=== PATIENT | male | born 1990 | race Caucasian/White ===

== ENCOUNTER 2023-08-16 09:45 | Emergency (ER) | payer BC, SELFPAY ==
[2023-08-16 09:53] VITALS: BP 124/86
[2023-08-16] MEDS: ZOFRAN 4 MG IV (10:13)
[2023-08-16] MEDS: TORADOL 30 MG IV (10:13)
[2023-08-16] MEDS: NSS 1000 IV (10:14)
--- NOTE | 2023-08-16 10:18 | ED.GENMED ---
History of Present Illness
General
Chief Complaint: Flank Pain
Source: patient
Exam Limitations: none
Time Seen by Provider: 08/16/23 10:01
Nursing documentation reviewed up to this point in time: agreed with
Travel History
Have you had any contact with someone who has COVID-19?: No
Do you have any symptoms of coronavirus? Fever > 100 degrees, chills, cough, shortness of breath, sore throat, loss of taste or smell, muscle aches, or headache?: No
History of Present Illness
History of Present Illness:
33-year-old male presenting to the emergency department today with concerns of right-sided flank pain rating to his lower abdomen over the past 2 days intermittent but very severe and sharp when the pain strikes. Has nausea no vomiting has had
kidney stones in the past. Developed some chest pain today as well
Past History
Past History
ED Past Medical History: None
ED Past Surgical History: Appendectomy
Social History
Personal: Single
Living: with family
Review of Systems
Review of Systems
Allergies reviewed?: Yes
All Other Systems: ROS reviewed and negative except as documented in HPI and ROS
Phy Exam
Physical Exam
Physical Exam:
GENERAL: Alert , in no apparent distress
EYE: pupils equal and reactive
NECK: Supple, no significant adenopathy.
ENT: o/p clr, mmm.
CARDIAC: Regular rate and rhythm .
LUNGS: Clear breath sounds bilaterally, no acute respiratory distress, no wheezes/rales/rhonchi
ABDOMEN: Mild right CVA tenderness otherwise abdomen soft, without focal tenderness, no r/g, no cvat
NEUROLOGICAL: Alert and oriented, no focal neuro deficits
SKIN: Warm and dry, skin intact.
MUSCULOSKELETAL: No edema, well perfused.
PSYCH: Normal and appropriate interaction.
Course
Orders/Labs/Results
Orders:
Orders
08/16/23 09:57
Electrocardiogram (*1) Urgent
Reason for Study: Chest Pain
EKG- Treatment ONCE
08/16/23 10:06
CT Abd/pel Without Iv Or Oral Urgent
Comment:
Reason For Exam: right flank pain
0.9% Sodium Chloride 1000 ml [Nss] 1,000 ml IV BOLUS
Ketorolac [Toradol] 30 mg IV NOW STA
Ondansetron Injectable [Zofran] 4 mg IV NOW STA
08/16/23 10:16
Complete Blood Count/With Diff Urgent
Comprehensive Metabolic Panel Urgent
08/16/23 11:09
Morphine Sulfate 4 mg IV NOW STA
Tamsulosin [Flomax] 0.4 mg PO NOW STA
08/16/23 11:16
Urinalysis Reflex To Culture Urgent
Date Specimen was Collected: 08/16/23
Time Specimen was Collected: 11:15
Urine Microscopic Reflex Cult Urgent
08/16/23 11:37
Tramadol HCl [Ultram] 50 mg PO NOW STA
Abnormal Lab Results
08/16/23 08/16/23
10:16 11:16
RBC 4.67 L 10^6/uL
(4.70-6.10)
Absolute Neuts (auto) 6.7 H 10^3/uL
(1.4-6.5)
Lymphocytes % 19.4 L %
(20.5-51.1)
Glucose 121 H mg/dl
(70-99)
Urine Ketones Trace A
(Negative)
Ur Occult Blood Reflex 4+ A
(Negative)
Urine RBC >100 A /HPF
(0-2)
08/16/23 10:16
08/16/23 10:16
Vital Signs
Initial and Last Documented VS:
Initial Vital Signs
Temp Pulse Resp BP Pulse Ox
98.8 F 74 20 124/86 96
08/16/23 09:53 08/16/23 09:53 08/16/23 09:53 08/16/23 09:53 08/16/23 09:53
Last Documented Vital Signs
Temp Pulse Resp BP Pulse Ox
98.8 F 63 20 117/70 96
08/16/23 09:53 08/16/23 13:02 08/16/23 09:53 08/16/23 13:02 08/16/23 09:53
MDM/Problems Addressed
MDM/Problems Addressed:
33-year-old male presenting to the emergency department today with concerns of right-sided flank pain rating to the right lower abdomen over the past few days. Has had some urinary frequency. On arrival vital signs are normal. Patient does appear
uncomfortable on examination. Mild pain to the right CVA no abdominal tenderness. Labs without significant white count normal creatinine urinalysis without signs of infection. Pain well-controlled here stable for outpatient management given
information for close urology follow-up. Return precautions given.
*Critical Care Note
Total Time (30-74mins, 75-104mins- exclusive of procedures): Not Applicable
ED Attending Note
-
Portions of this chart may have been created with voice recognition software.� Occasional wrong word or��sound alike� substitutions may have occurred due to the inherent limitations of voice recognition software.
Discharge Plan
Departure
Patient Disposition: Home (Routine Discharge)
Date of Disposition: 08/16/23
Time of Disposition: 13:29
Patient with high blood pressure during this ER visit?: No
Condition: Good
Covid-19: Not Applicable
Discharge Problem:
Kidney stone on right side
Instructions: Kidney Stones (DC), Renal Colic (DC)
Prescriptions:
New
ondansetron 4 mg tablet,disintegrating
4 mg PO Q8H PRN (Reason: nausea and vomiting) Qty: 7 0RF
ketorolac 10 mg tablet
10 mg PO Q6H PRN (Reason: Pain) 3 Days Qty: 14 0RF
oxycodone-acetaminophen [Endocet] 5-325 mg tablet
1 tab PO TID PRN (Reason: Pain) Qty: 7 0RF
tamsulosin [Flomax] 0.4 mg capsule
0.4 mg PO HS Qty: 10 0RF
No Action
diazepam 2 MG tablet
2 mg PO TIDPRN PRN (Reason: prn for muscle relaxation) Qty: 14 0RF
Referrals:
Dalton Burrows MD [Active] - Follow up in 5-7 days
NONE,* [Family Provider] -
Activity Restrictions/Additional Instructions:
You came to the emergency department today with concerns of right-sided flank pain. You are found to have a 4.5 mm stone. You will need to follow-up closely with urology take the medications as prescribed. Return to the emergency department for
any worsening, new or concerning symptoms.
Interventions
Interventions:
*Risk Screen - Suicide Last Done: 08/16/23 09:53
*General Assessment Last Done: 08/16/23 09:53
*Neglect/Abuse Screening Last Done: 08/16/23 09:53
ED- Fall Risk Assessment Last Done: 08/16/23 13:45
*ED COVID-19 Vaccine History Last Done: 08/16/23 13:45
*Nursing Disposition Last Done: 08/16/23 13:45
SR-Lauprk-Liadloybre Assessment Last Done: 08/16/23 10:18
ED- Cardiac Assessment Last Done: 08/16/23 13:45
ED-Male Genitourinary Assessment Last Done: 08/16/23 10:18
Discharge Date and Time
Discharge Date/Time: 08/16/23 13:46
Print Language: NEPALI
[2023-08-16 10:27] LABS: % Basophils 0.2 % (0-2); % Eosinophils 1.1 % (0-6); % Immature Granulocytes 0.1 % (0-0.5); % Lymphocytes 19.4 % (20.5-51.1); % Neutrophils 74.2 % (42.2-75.2); Absolute Eosinophils 0.1 10^3/uL (0-0.7); Absolute Lymphocytes 1.7 10^3/uL (1.2-3.4); Absolute Monocytes 0.5 10^3/uL (0.1-0.6); Absolute Neutrophils 6.7 10^3/uL (1.4-6.5); Hematocrit 40.3 % (39.0-52.0); Hemoglobin 13.8 g/dL (13.0-18.0); Mean Corp Hgb Conc. 34.2 g/dL (33.0-37.0); Mean Corpuscular Hgb 29.6 pg (27.0-31.0); Mean Corpuscular Volume 86.3 fL (80.0-94.0); Mean Platelet Volume 9.9 fL (7.4-10.4); Nucleated Red Blood Cells % 0 % (-); Platelet Count 272 10^3/uL (130-400); Red Blood Cell Count 4.67 10^6/uL (4.70-6.10)
[2023-08-16 10:40] LABS: ALT (SGPT) 29 U/L (0-50); AST (SGOT) 23 U/L (17-59); Albumin 4.4 g/dl (3.5-5.0); Alkaline Phosphatase 55 U/L (38-126); Blood Urea Nitrogen 20 mg/dl (9-20); Calcium 9.6 mg/dl (8.4-10.2); Carbon Dioxide 24 mmol/L (22-30); Chloride 106 mmol/L (98-107); Glucose 121 mg/dl (70-99); Potassium 4.2 mmol/L (3.5-5.1); Sodium 139 mmol/L (135-145); Total Bilirubin 0.9 mg/dl (0.2-1.3); eGFR > 60.00
[2023-08-16] MEDS: FLOMAX 0.400000000000000022 MG PO (11:12)
[2023-08-16] MEDS: MORPHINE SULFATE 4 MG IV (11:12)
[2023-08-16] MEDS: ULTRAM 50 MG PO (11:41)
[2023-08-16 11:55] LABS: Urine Albumin Negative (Neg - Trace); Urine Bilirubin Negative (Negative); Urine Character Slightly Cloudy (Clear); Urine Color Yellow; Urine Glucose Negative (Negative); Urine Ketone Trace (Negative); Urine Leukocyte Negative (Negative); Urine Nitrite Negative (Negative); Urine Occult Blood 4+ (Negative); Urine Specific Gravity 1.025 (<1.030); Urine Urobilinogen Negative (Neg - 1+)
[2023-08-16 13:02] VITALS: BP 117/70
[2023-08-16 13:47] LABS: Urine Red Blood Cell >100 /HPF (0-2); Urine Squamous Cell 0-2 /LPF (Few); Urine White Cell 0-2 /HPF (0-5)
== END 2023-08-16 13:46 | disposition home or self-care (01) ==
LOC: EMR 09:45
PROVIDERS: Physician Assistant; EMERGENCY PHYSICIAN Emergency Medicine
DX: N20.0 Calculus of kidney (principal); R07.89 Other chest pain; Z90.49 Acquired absence of other specified parts of digestive tract
CPT/HCPCS: 99284; 96374; 96375; 96361; 74176; 80053; 81003; 81015; 85025; 93005

== ENCOUNTER 2024-03-11 10:32 | Emergency (ER) | payer BC, SELFPAY ==
[2024-03-11] VITALS (7 sets, daily range): BP systolic 113–136; BP diastolic 71–92; BMI 34.8
--- NOTE | 2024-03-11 10:47 | EDRN ---
Evy MARTINEZ currently at the pts bedside, EKG performed, pt placed on patient monitor, BP cuff, VS WNL, right side chest pain is currently a 2/10 and non radiating, the pts parents were immediately brought back to the pts room when they arrived
due to being upset that their son was taken to the ER in an ambulance, PIV placed, the pt has been update on the plan of care, the pt is resting in stretcher in the lowest position, side rails up x2, call wilde within reach, HOB elevated, will
continue to monitor the pt closely
[2024-03-11 10:51] LABS: % Basophils 0.2 % (0-2); % Eosinophils 2.7 % (0-6); % Immature Granulocytes 0.3 % (0-0.5); % Lymphocytes 40.1 % (20.5-51.1); % Monocytes 6.1 % (1.7-9.3); % Neutrophils 50.6 % (42.2-75.2); Absolute Eosinophils 0.2 10^3/uL (0-0.7); Absolute Lymphocytes 3.4 10^3/uL (1.2-3.4); Absolute Monocytes 0.5 10^3/uL (0.1-0.6); Absolute Neutrophils 4.3 10^3/uL (1.4-6.5); Hematocrit 44.2 % (39.0-52.0); Hemoglobin 14.8 g/dL (13.0-18.0); Mean Corp Hgb Conc. 33.5 g/dL (33.0-37.0); Mean Corpuscular Hgb 29.5 pg (27.0-31.0); Mean Platelet Volume 9.8 fL (7.4-10.4); Nucleated Red Blood Cells % 0 % (-); Platelet Count 233 10^3/uL (130-400); Red Blood Cell Count 5.02 10^6/uL (4.70-6.10); Red Cell Dist. Width 13.4 % (11.5-14.5); White Blood Cell Count 8.6 10^3/uL (4.8-10.8)
--- NOTE | 2024-03-11 10:52 | ED.GENMED ---
History of Present Illness
<Jenna Jamison PA-C - Last Filed: 03/11/24 20:37>
General
Chief Complaint: Chest Pain
Source: patient
Exam Limitations: none
Time Seen by Provider: 03/11/24 10:34
Nursing documentation reviewed up to this point in time: agreed with
History of Present Illness
History of Present Illness:
Patient is a 34-year-old male presenting to the emergency department via EMS for evaluation of acute onset chest discomfort waking him from sleep this morning. Patient states about 1 hour ago he was awoken from sleep with a 6/10 chest pressure in
his mid chest. No radiation to his back, jaw, or shoulder. Patient reports associated nausea and lightheadedness although denies any vomiting. Patient states he felt extremely sweaty and if he was in a pass out. Patient's gave him 487 mg of
aspirin (1.5 tablets) and call [phone]. Patient states at this time chest pressure has essentially resolved. He no longer feels lightheaded. Patient denies any associated shortness of breath. No abdominal pain
Patient denies any similar symptoms in the past. Patient does have history of acid reflux but states this feels very different. However�she did have steak and popcorn late at night prior to bed.
No personal history of cardiovascular disease. Patient does have a family history of CAD in maternal grandmother, CHF.
Past History
<Jenna Jamison PA-C - Last Filed: 03/11/24 20:37>
Past History
ED Past Medical History: None
ED Past Surgical History: Appendectomy
Social History
Personal: Single
Living: with family
Review of Systems
<Jenna Jamison PA-C - Last Filed: 03/11/24 20:37>
Review of Systems
Allergies reviewed?: Yes
All Other Systems: ROS reviewed and negative except as documented in HPI and ROS
Phy Exam
<Jenna Jamison PA-C - Last Filed: 03/11/24 20:37>
Physical Exam
Physical Exam:
Vitals: Patient's vital signs are stable. Afebrile
General: Patient is well appearing, no acute distress. Nontoxic
Skin: Warm and dry, no rashes or lesions
Head: Normocephalic, atraumatic
Eyes: Sclera nonicteric. EOMs intact. No nystagmus.
Throat: Protecting airway
Neck: Normal ROM, no cervical spine tenderness, no meningismus
Cardiac: Regular rate and rhythm, no murmurs. No reproducible chest wall tenderness
Pulm: Normal respiratory effort, no wheezes, rales, rhonchi heard on exam.
Abdomen: Abdomen soft. No abdominal tenderness.
Extremities: No evidence of cyanosis or edema. Palpable DP pulses bilaterally
Neuro: AAOx3. Grossly intact.
Psychiatric: Normal affect.
Scores
<Jenna Jamison PA-C - Last Filed: 03/11/24 20:37>
Heart Score for Chest Pain Patients
STEMI patient?: No
History: Slightly or Non-Suspicious
ECG: Nonspecific Repolarization
Age: </= 45 years
Risk Factors: 1 or 2 Risk Factors
Troponin: </= Normal Limit
Heart Score for Chest Pain Patients: 2
Heart Score Risk: 2.5% MACE over next 6 weeks
Course
<Jenna Jamison PA-C - Last Filed: 03/11/24 20:37>
Orders/Labs/Results
Orders:
Orders
03/11/24
Electrocardiogram (*1) Stat
Reason for Study: Chest Pain
Comment: DONE
03/11/24 10:33
Electrocardiogram (*1) Urgent
Reason for Study: Chest Pain
CXR2 [CR Chest - 2 Views ] Urgent
Comment:
Reason For Exam: chest pain/SOB
03/11/24 10:34
EKG- Treatment ONCE
03/11/24 10:45
Complete Blood Count/With Diff Urgent
Comprehensive Metabolic Panel Urgent
Troponin I Urgent
03/11/24 11:36
EKG- Treatment ONCE
03/11/24 13:45
Electrocardiogram (*1) Urgent
Reason for Study: Chest Pain
EKG- Treatment ONCE
03/11/24 15:50
Troponin I Routine
03/11/24 17:05
Add On- LAB Urgent
Tests Added?: d-dimer
03/11/24 17:46
CT Chest PE Study Urgent
Comment:
Reason For Exam: chest pain
Abnormal Lab Results
03/11/24
10:45
Chloride 108 H mmol/L
(98-107)
Carbon Dioxide 20 L mmol/L
(22-30)
Glucose 119 H mg/dl
(70-99)
ALT 54 H U/L
(0-50)
03/11/24 10:45
03/11/24 10:45
Vital Signs
Initial and Last Documented VS:
Initial Vital Signs
Pulse Resp
85 17
03/11/24 10:36 03/11/24 10:36
Last Documented Vital Signs
Temp Pulse Resp BP Pulse Ox
97.5 F 96 20 136/75 98
03/11/24 18:14 03/11/24 18:14 03/11/24 18:14 03/11/24 18:14 03/11/24 18:14
<Ezio Rodarte, DO - Last Filed: 03/11/24 15:05>
Orders/Labs/Results
Orders:
Orders
03/11/24
Electrocardiogram (*1) Stat
Reason for Study: Chest Pain
Comment: DONE
03/11/24 10:33
Electrocardiogram (*1) Urgent
Reason for Study: Chest Pain
CXR2 [CR Chest - 2 Views ] Urgent
Comment:
Reason For Exam: chest pain/SOB
03/11/24 10:34
EKG- Treatment ONCE
03/11/24 10:45
Complete Blood Count/With Diff Urgent
Comprehensive Metabolic Panel Urgent
Troponin I Urgent
03/11/24 11:36
EKG- Treatment ONCE
03/11/24 13:45
Electrocardiogram (*1) Urgent
Reason for Study: Chest Pain
EKG- Treatment ONCE
03/11/24 15:50
Troponin I Routine
03/11/24 17:05
Add On- LAB Urgent
Tests Added?: d-dimer
03/11/24 17:46
CT Chest PE Study Urgent
Comment:
Reason For Exam: chest pain
Abnormal Lab Results
03/11/24
10:45
Chloride 108 H mmol/L
(98-107)
Carbon Dioxide 20 L mmol/L
(22-30)
Glucose 119 H mg/dl
(70-99)
ALT 54 H U/L
(0-50)
03/11/24 10:45
03/11/24 10:45
Vital Signs
Initial and Last Documented VS:
Initial Vital Signs
Pulse Resp
85 17
03/11/24 10:36 03/11/24 10:36
Last Documented Vital Signs
Temp Pulse Resp BP Pulse Ox
97.5 F 96 20 136/75 98
03/11/24 18:14 03/11/24 18:14 03/11/24 18:14 03/11/24 18:14 03/11/24 18:14
<Jenna Jamison PA-C - Last Filed: 03/11/24 20:37>
MDM/Problems Addressed
Differential Diagnosis Includes:
Not limited to: GERD, biliary colic, pancreatitis, acute coronary syndrome, pericarditis, etc.
MDM/Problems Addressed:
34-year-old male with acute onset chest pain, mostly resolved prior to arrival after aspirin. Notes associated nausea, lightheadedness, diaphoresis. No associated shortness of breath. No alleviating or exacerbating factors of pain. Patient
arrived with stable vital signs. He is afebrile. Physical exam as above. EKG obtained upon arrival shows normal sinus rhythm with some T wave inversions in the inferior leads. There is no prior EKG for comparison. Will check labs, serial
troponins, chest x-ray. Will closely monitor and reassess. At this time patient without any pain or discomfort.
Update 1 PM: Into reassess patient at bedside. Patient remains asymptomatic and comfortable without any chest pain or shortness of breath. Labs reviewed. No clinically significant abnormalities. Initial troponin undetectable. Will trend. Chest
x-ray without acute abnormalities.
Update 3:00 PM: Unfortunately�multiple troponins were drawn and hemolyzed through lab. Repeat troponin pending. Patient remains asymptomatic and chest pain-free. Repeat EKG remains unchanged from prior.
Update 4 PM: Repeat troponin undetectable. This was discussed with cardiology, Dr. Carranza who recommended ruling out pulmonary embolism given slight [id number] pattern noted on EKG. Discussed D-dimer with patient at screening exam as patient be
considered low risk and overall have very low suspicion for pulmonary embolism given patient has been asymptomatic with no pleuritic nature of pain. However�patient refusing any further blood draws given repetitive sticks today while drawing
troponin. Will check CTA chest to rule out PE.
Update 630 PM: CTA chest report reviewed. No evidence of pulmonary embolism or other acute abnormalities in the chest. Patient has remained chest pain-free and asymptomatic since arrival to emergency department. Workup negative. Low suspicion
for acute cardiac/pulmonary process. However�given family history and EKG changes, recommended close cardiology follow-up. Offered patient chest pain hotline although he states that he will follow-up with his brothers floral clerk at [facility]
Hospital. Very close return precautions discussed. Patient stable for discharge
Chronic conditions affecting care:
N/A
Acute Exacerbation and/or Progression of Chronic Illness:
N/A
<Jenna Jamison PA-C - Last Filed: 03/11/24 20:37>
*Radiology
Radiology exam reviewed: preliminary read by ED provider (Chest x-ray reviewed by nm-no acute abnormalities) and radiology read reviewed
*Pulse Oximetry
Patient hypoxic: no
*EKG
Interpreted by ED Provider?: Yes
EKG Intrepretation Date: 03/11/24
Interpretation: abnormal
Comparison EKG: no comparison EKG present
Heart Rate: 86
Rate: normal
Rhythm: sinus
Sheldon: normal axis
Interval: normal QT interval
QRS Pattern: normal QRS
Ischemia: T-wave inversion (T wave inversions in leads II, III, aVF)
*Strip Picker Interpretation
Rate: normal
Interpretation: normal
Heart Rate: 82
Rhythm: sinus
*Critical Care Note
Total Time (30-74mins, 75-104mins- exclusive of procedures): Not Applicable
<Jenna Jamison PA-C - Last Filed: 03/11/24 20:37>
Patient Management
Discussion with other providers: Experimental Psychologist (Cardiology-Dr. Carranza)
ED Attending Note
<Jenna Jamison PA-C - Last Filed: 03/11/24 20:37>
-
Portions of this chart may have been created with voice recognition software.� Occasional wrong word or��sound alike� substitutions may have occurred due to the inherent limitations of voice recognition software.
<Ezio Rodarte DO - Last Filed: 03/11/24 15:05>
ED Attending Note
Patient seen and examined by attending physician: Yes
I performed a history and physical exam of patient and discussed management with resident, I reviewed resident's note and agree with documented findings and plan of care.: Yes
ED Attending Note:
I agree with history and treatment plan by Jenna Fay. My exam revealed 34-year-old male no acute distress. Clear lungs. No murmur. S1, S2, no S3 or S4. Initial troponin negative. Will repeat troponin. Mild T wave inversions seen in
leads II, III and aVF.
Discharge Plan
Departure
Patient Disposition: Home (Routine Discharge)
Date of Disposition: 03/11/24
Time of Disposition: 18:37
Patient with high blood pressure during this ER visit?: Yes
Condition: Good
Covid-19: Not Applicable
Discharge Problem:
Chest pain
Instructions: Chest pain
Prescriptions:
No Action
No Current Medications
0
Referrals:
NONE,* [Family Provider] -
Damien Carranza MD [Active] - Next open appointment
Activity Restrictions/Additional Instructions:
Return to the emergency department any pain, shortness of breath, severe back pain, lightheadedness/dizziness, worsening current symptoms, or any other concerns
-As discussed�your CT of your chest showed no evidence of a pulmonary embolism.
-Given your family history and findings on your EKG�it is important you follow-up closely with a floral clerk. I have provided name for you above or you can follow-up with your family floral clerk in [facility].
-Take it easy until you are seen by floral clerk. Stay well-hydrated.
Monitor your symptoms closely and return to the emergency department any acute worsening/new symptoms or any other concerns
Interventions
Interventions:
*Risk Screen - Suicide Last Done: 03/11/24 10:51
*General Assessment Last Done: 03/11/24 10:51
*Neglect/Abuse Screening Last Done: 03/11/24 10:51
ED- Fall Risk Assessment Last Done: 03/11/24 10:51
*ED COVID-19 Vaccine History Last Done: 03/11/24 10:51
*Nursing Disposition Last Done: 03/11/24 18:41
ED- Cardiac Assessment Last Done: 03/11/24 10:51
Discharge Date and Time
Discharge Date/Time: 03/11/24 18:43
Print Language: MARSHALLESE
[2024-03-11 11:08] LABS: ALT (SGPT) 54 U/L (0-50); AST (SGOT) 28 U/L (17-59); Albumin 4.5 g/dl (3.5-5.0); Alkaline Phosphatase 53 U/L (38-126); Blood Urea Nitrogen 16 mg/dl (9-20); Calcium 8.9 mg/dl (8.4-10.2); Carbon Dioxide 20 mmol/L (22-30); Chloride 108 mmol/L (98-107); Estimated Creatinine Clearance > 125 ml/min; Glucose 119 mg/dl (70-99); Potassium 4.1 mmol/L (3.5-5.1); Sodium 141 mmol/L (135-145); Total Bilirubin 0.7 mg/dl (0.2-1.3); Total Protein 6.7 g/dl (6.3-8.2); eGFR > 60.00
[2024-03-11 11:18] LABS: Troponin I < 0.012 ng/ml
[2024-03-11 16:30] LABS: Troponin I < 0.012 ng/ml
--- NOTE | 2024-03-11 16:35 | EDRN ---
Evy MARTINEZ currently at the pts bedside
--- NOTE | 2024-03-11 17:29 | EDRN ---
the lab so far has hemolyzed multiple specimens for the pts Troponin and the provider Evy MARTINEZ notified along with Dr. Randall, multiple RN's have straight stuck the pt to obtain Troponin, the second Troponin level finally resulted and the
provider was notified that the Troponin was negative, the provider then spoke to Dr. Carranza in cardiology and per the rolling machine operator a D-dimer was to be drawn and sent to the lab, this RN any the first D-dimer and the lab called this RN to stated that
the D-dimer was hemolyzed, this RN notified the provider and another RN was going to go into the pts room to draw and send a second D-dimer, the family stated that they were very upset and frustrated and don't understand why 'so many labs have to be
drawn this is ridiculous and something doesn't add up and something doesn't make sense', this RN notified Evy MARTINEZ, Dr. Randall, and the charge nurse Pam Pena, this RN apologized to the pts family and apologized for their frustrations and
for their wait in the emergency room, Evy MARTINEZ and Pam Pena RN the charge nurse entered the pts room to speak to the pt and the pts family to attempt to de escalate the situation
--- NOTE | 2024-03-11 17:47 | EDRN ---
Evy MARTINEZ and Pam Pena RN currently still at the pts bedside speaking with the pt and the pts family, the pt family is refusing D-dimer and wants to go straight to CT scan for PE study
--- NOTE | 2024-03-11 18:05 | EDRN ---
the pt was brought back from CT scan to ED Bed #2
--- NOTE | 2024-03-11 18:11 | EDRN ---
the pt was not placed back on the qc chemist due to the pt removing qc chemist and leads prior to CT scan and wanting to be done with 'the wires', the PCT Anyi entered the pts room to place the pt back on the qc chemist and to
recheck vital signs and the pt refused
== END 2024-03-11 18:43 | disposition home or self-care (01) ==
LOC: EMR 10:32
PROVIDERS: EMERGENCY PHYSICIAN Emergency Medicine
DX: R07.89 Other chest pain (principal); K21.9 Gastro-esophageal reflux disease without esophagitis; Z90.49 Acquired absence of other specified parts of digestive tract; Z82.49 Family history of ischemic heart disease and other diseases of the circulatory system
CPT/HCPCS: 99285; 71046; 71275; 80053; 84484; 85025; 93005; Q9967

== ENCOUNTER 2024-10-01 12:53 | Emergency (ER) | payer OTHER, SELFPAY ==
[2024-10-01 12:58] VITALS: BP 129/87
[2024-10-01 13:07] VITALS: BP 125/79
--- NOTE | 2024-10-01 13:55 | ED.GENMED ---
History of Present Illness
General
Chief Complaint: Chest Pain
Time Seen by Provider: 10/01/24 13:52
History of Present Illness
History of Present Illness:
PAST MEDICAL HISTORY AND REVIEW OF OLD RECORDS
- I reviewed records. The patient was also seen here with chest pain in February of this year and was discharged from the ER at that time. At that time, the patient also had a CTA that was negative for PE.
Note:
CHIEF COMPLAINT(S)
Chest pain radiating to the neck and shoulder with associated tingling in the hand.
HISTORY OF PRESENT ILLNESS
The patient is a 34-year-old male with a history of high cholesterol who presents with reports of chest pain radiating to the neck and shoulder with a tingling sensation in the hand. The patient reported that these symptoms began approximately one
month ago, during which he would occasionally experience chest pain that intensified today, lasting longer than usual. The pain started around 12 oclock today and has persisted. He describes the pain as a severe tightening sensation in the center of
the chest, radiating into the throat and neck, and accompanied by tingling in the hand, although he maintains full mobility of the hand. He mentions that the pain intensity has varied in past occurrences, typically lasting five to ten minutes.
Notably, he experienced chest discomfort when pressure was applied to the chest area during the exam.
The patient has a past medical history of high cholesterol and chronic hives for which he is taking prednisone, Zyrtec, Pepsid, hydroxazine, and Xolair. He attributes one previous episode of abnormal electrocardiogram (EKG) results in February to
accidentally taking his fathers blood pressure medication. No follow-up with a rug cleaner helper was pursued at that time, despite a recommendation. The patient has had previous concerns about abnormal EKG results but was reassured they were non-specific
and not indicative of emergent cardiac issues. Blood work is pending to further evaluate his current condition.
EXTERNAL RECORDS REVIEWED
Prior ER visit records from February with abnormal but non-specific EKG results that did not necessitate hospital admission or immediate intervention.
CHRONIC MEDICAL CONDITIONS SIGNIFICANTLY AFFECTING CARE
- High cholesterol.
- Chronic hives.
MEDICATIONS
- Prednisone for chronic urticaria.
- Zyrtec (cetirizine) taken twice daily.
- Pepsid.
- Hydroxyzine.
- Xolair.
PHYSICAL EXAM
General: Alert, no acute distress. However at times appears to have pain in his chest that especially worsens with palpation.
Skin: Warm, dry.
Head: Normocephalic, atraumatic.
Neck: Supple, trachea midline.
Eye, Ears, Nose, Mouth, and Throat: Oral mucosa moist.
Cardiovascular: Normal peripheral perfusion, No edema.
Respiratory: Respirations are non-labored, severe tenderness noted upon palpation of the left chest wall.
Gastrointestinal: Abdomen nondistended.
Back: Normal range of motion, normal alignment.
Musculoskeletal: Normal range of motion, normal strength.
Neurological: Alert and oriented to person, place, time, and situation, No focal neurological deficit observed.
Psychiatric: Cooperative, appropriate mood & affect.
PROBLEM LIST
Acute Problems:
- Chest pain with radiation to neck and shoulder.
- Tingling sensation in the hand.
Chronic Problems:
- High cholesterol.
- Chronic urticaria (hives).
PLAN
- Perform cardiac panel blood work to rule out any acute cardiac events.
- Prescribe a single dose of ketorolac for pain management.
- Consider referral for rug cleaner helper consultation for further evaluation of the recurrent chest pain and review of abnormal EKG findings.
- Educate the patient about recognizing worsening symptoms and advising ER return if conditions intensify.
- Schedule follow-up to discuss lab results and potential need for further cardiac evaluation.
DIFFERENTIAL DIAGNOSIS
The Differential Diagnosis includes, in no particular order and is not limited to:
- Acute coronary syndrome.
- Gastroesophageal reflux disease (GERD).
- Costochondritis.
- Cervical radiculopathy.
- Panic attack/anxiety.
- Myocarditis.
- Pericarditis.
- Musculoskeletal pain.
- Pulmonary embolism.
- Aortic dissection.
SUMMARY OF ENCOUNTER
The patient, a 34-year-old male, presented with chest pain radiating to the neck and shoulder, accompanied by tingling in the hand. He has a history of high cholesterol. An electrocardiogram (EKG) was performed and compared to a previous EKG from
February, showing no significant changes or acute concerns. While serious cardiac issues are less likely at his age, further evaluation is recommended considering his risk factors. The patient is advised to follow up with a rug cleaner helper and consider
further testing to rule out cardiac events. Musculoskeletal or gastrointestinal causes for the chest pain are considered more likely. The patient is advised to also consider a GI consultation.
PLAN
Perform cardiac panel blood work.
Provide contact information for rug cleaner helper follow-up, particularly suggesting Dr. Guerra from [facility].
Further testing with a GI specialist at [facility] is suggested.
PATIENT EDUCATION AND COUNSELING
Informed the patient about the importance of cardiac follow-up due to a history of high cholesterol and risk factors. Explained non-cardiac causes of chest pain, such as musculoskeletal or gastrointestinal issues. Encouraged weight loss efforts to
manage cholesterol levels.
FOLLOW-UP INSTRUCTIONS
Follow up with [facility] and [facility] for further evaluation.
MEDICATION RECONCILIATION
Provided a single dose of ketorolac for pain management.
MEDICAL DECISION MAKING
-Complexity of Data Reviewed:
Chronic conditions affecting care include high cholesterol and chronic urticaria. Differential diagnosis includes acute coronary syndrome, gastroesophageal reflux disease (GERD), costochondritis, cervical radiculopathy, panic attack/anxiety,
myocarditis, pericarditis, musculoskeletal pain, pulmonary embolism, and aortic dissection.
-Data:
Category 1:
Reviewed prior ER visit records from February showing an abnormal EKG that was non-specific.
-Risk:
Consideration of Admission/Observation: Escalation of care including admission/observation was considered given the complexity and risk of the patients presenting complaint, exam findings, and/or their underlying comorbidities. However, ultimately I
feel the patient is safe for outpatient management with close follow-up. Reasoning: Work-up reassuring, does not reveal any acute life/organ-threatening processes, patients symptoms well controlled upon reevaluation, reexamination is reassuring,
vitals are stable, patient agreeable with discharge, reliable for follow-up.
DIAGNOSIS
Costochondritis (M94.0)
Chronic urticaria (L50.1)
Hyperlipidemia, unspecified (E78.5)
RADIOLOGY
- I personally viewed chest x-ray and see no evidence of pneumothorax or consolidation.
EKG
- Sinus 105, normal axis, nonspecific ST normality, no significant change from 03/11/2024
-
LABS
- White count 13.0, hemoglobin normal, chemistries unremarkable, initial troponin less than 0.012
UPDATE
- I reassessed patient at 3:20 PM. Overall he is improved but did have an episode of pain into the right side of his jaw that was self-limiting. The patient did have another episode of chest discomfort and another EKG was obtained which is very
similar in comparison to the first EKG from earlier today.
- Patient to follow-up with cardiology as outpatient we also talked about the possibly of following up with GI as well. He appears very comfortable at time of discharge.
Past History
Past History
ED Past Medical History: None
ED Past Surgical History: Appendectomy
Social History
Personal: Single
Living: with family
Phy Exam
Physical Exam
Physical Exam:
See HPI
Scores
Heart Score for Chest Pain Patients
STEMI patient?: Not applicable
Course
Orders/Labs/Results
Orders:
Orders
10/01/24 12:54
Electrocardiogram (*1) Urgent
Reason for Study: Chest Pain
EKG- Treatment ONCE
10/01/24 14:02
Ketorolac [Toradol] 15 mg IV NOW STA
10/01/24 14:03
CR Chest - 2 Views Urgent
Comment:
Reason For Exam: L pain
10/01/24 14:16
Complete Blood Count/With Diff Urgent
Comprehensive Metabolic Panel Urgent
Troponin I Urgent
10/01/24 14:31
EKG [Electrocardiogram (*1)] Urgent
Reason for Study: Chest Pain
EKG- Treatment ONCE
10/01/24 16:28
Troponin I Urgent
Abnormal Lab Results
10/01/24
14:16
WBC 13.0 H 10^3/uL
(4.8-10.8)
MCHC 32.7 L g/dL
(33.0-37.0)
Abs Immat Gran (auto) 0.1 H 10^3/uL
(0-0.05)
Absolute Neuts (auto) 11.1 H 10^3/uL
(1.4-6.5)
Neutrophils % 84.8 H %
(42.2-75.2)
Lymphocytes % 10.7 L %
(20.5-51.1)
Chloride 108 H mmol/L
(98-107)
Glucose 100 H mg/dl
(70-99)
10/01/24 14:16
10/01/24 14:16
Vital Signs
Initial and Last Documented VS:
Initial Vital Signs
Temp Pulse Resp BP Pulse Ox
36.6 C 89 16 129/87 97
10/01/24 12:58 10/01/24 12:58 10/01/24 12:58 10/01/24 12:58 10/01/24 12:58
Last Documented Vital Signs
Temp Pulse Resp BP Pulse Ox
36.6 C 93 15 109/75 97
10/01/24 12:58 10/01/24 16:45 10/01/24 16:45 10/01/24 16:00 10/01/24 13:55
*Pulse Oximetry
SaO2: 97
Oxygen Mode of Delivery: Room air
Patient hypoxic: no
*Critical Care Note
Total Time (30-74mins, 75-104mins- exclusive of procedures): Not Applicable
ED Attending Note
-
Portions of this chart may have been created with voice recognition software.� Occasional wrong word or��sound alike� substitutions may have occurred due to the inherent limitations of voice recognition software.
Discharge Plan
Departure
Patient Disposition: Home (Routine Discharge)
Date of Disposition: 10/01/24
Time of Disposition: 17:13
Patient with high blood pressure during this ER visit?: Yes
Discharge Problem:
Chest pain
Instructions: Chest Pain CBC Follow Up
Prescriptions:
No Action
No Current Medications
0
Referrals:
Charles Salgado MD [Active, Cardiology]
Micahel Rosenthal PA-C [Family Provider, Family Practice]
Activity Restrictions/Additional Instructions:
2 sets of cardiac blood work as well as EKG showed no sign of you having a heart attack at this time. Tthere is some nonspecific ST abnormality on the EKG, but this does not look like anything new. I recommend that you follow-up with a
rug cleaner helper such as Dr. Salgado. Chest x-ray is normal.
Interventions
Interventions:
*Risk Screen - Suicide Last Done: 10/01/24 12:59
*General Assessment Last Done: 10/01/24 14:51
*Neglect/Abuse Screening Last Done: 10/01/24 12:59
*ED- Fall Risk Assessment Last Done: 10/01/24 14:51
*ED COVID-19 Vaccine History Last Done: 10/01/24 14:51
ED- Cardiac Assessment Last Done: 10/01/24 14:22
Discharge Date and Time
Print Language: LUX[place]
[2024-10-01 14:00] VITALS: BP 117/74
[2024-10-01] MEDS: TORADOL 15 MG IV (14:18)
[2024-10-01 14:20] VITALS: BMI 35.9
[2024-10-01 14:28] LABS: Hematocrit 44.9 % (39.0-52.0); Hemoglobin 14.7 g/dL (13.0-18.0); Mean Corp Hgb Conc. 32.7 g/dL (33.0-37.0); Mean Corpuscular Volume 88.9 fL (80.0-94.0); Nucleated Red Blood Cells % 0 % (-); Platelet Count 208 10^3/uL (130-400); Red Cell Dist. Width 13.8 % (11.5-14.5)
[2024-10-01 14:46] LABS: ALT (SGPT) 25 U/L (0-50); AST (SGOT) 18 U/L (17-59); Albumin 4.3 g/dl (3.5-5.0); Alkaline Phosphatase 44 U/L (38-126); Blood Urea Nitrogen 20 mg/dl (9-20); Calcium 9.3 mg/dl (8.4-10.2); Carbon Dioxide 24 mmol/L (22-30); Chloride 108 mmol/L (98-107); Estimated Creatinine Clearance 121 ml/min; Glucose 100 mg/dl (70-99); Potassium 4.6 mmol/L (3.5-5.1); Sodium 140 mmol/L (135-145); Total Protein 6.6 g/dl (6.3-8.2); eGFR > 60.00
[2024-10-01 14:58] LABS: Troponin I < 0.012 ng/ml
[2024-10-01 15:17] VITALS: BP 123/78
[2024-10-01 16:00] VITALS: BP 109/75
[2024-10-01 17:00] VITALS: BP 114/75
[2024-10-01 17:03] LABS: Troponin I < 0.012 ng/ml
== END 2024-10-01 17:34 | disposition home or self-care (01) ==
LOC: EMR 12:53
PROVIDERS: EMERGENCY PHYSICIAN Emergency Medicine; FAMILY PHYSICIAN Physician Assistant Medical
DX: R07.9 Chest pain, unspecified (principal); E78.00 Pure hypercholesterolemia, unspecified; L50.8 Other urticaria
CPT/HCPCS: 99284; 96374; 71046; 80053; 84484; 85025; 93005

== ENCOUNTER 2024-10-02 00:42 | Emergency (ER) | payer OTHER, SELFPAY ==
[2024-10-02 00:51] VITALS: BP 116/84
--- NOTE | 2024-10-02 02:07 | ED.GENMED ---
History of Present Illness
General
Chief Complaint: Allergic Reaction
Source: patient
Time Seen by Provider: 10/02/24 01:57
History of Present Illness
History of Present Illness:
34-year-old male presents to the emergency room complaining of facial, neck, lip swelling. Symptoms began this evening. Patient had been here earlier today for chest pain. Workup at that time was negative. Patient has been under treatment by an
security and compliance analyst for chronic urticaria. He has been taking multiple medications without any clear resolution. Patient subjectively feels like there is some neck swelling or throat swelling though he is phonating normally. No stridor.
Past History
Past History
ED Past Medical History: None
ED Past Surgical History: Appendectomy
Social History
Personal: Single
Living: with family
Phy Exam
Physical Exam
Physical Exam:
General: Awake, Alert, Oriented X3. No acute distress.
Vitals: unremarkable
Head: Atraumatic, facial and lip edema
Eyes: Pupils equal, EOMI
Throat: Airway intact, no exudates perhaps some angioedema of the tongue but certainly no stridor. No angioedema of the posterior pharynx
Neck: Trachea midline
Lungs: Clear and equal b/l
Heart: Regular rate, no murmurs
Abd: Soft, Nontender, No pulsatile mass
Neuro: Nonfocal
Skin: Warm, dry, no rash
Extremities: pulses equal b/l, no edema
Course
Orders/Labs/Results
Orders:
Orders
10/02/24 02:03
Cardiac Monitoring- Treatment ONCE
Dexamethasone Sod Phosphate [Decadron] 10 mg IV NOW STA
Diphenhydramine [Benadryl] 50 mg IV NOW STA
EPINEPHrine PF [Adrenalin] 0.3 mg IM NOW STA
Vital Signs
Initial and Last Documented VS:
Initial Vital Signs
Temp Pulse Resp BP Pulse Ox
98.5 F 96 18 116/84 95
10/02/24 00:51 10/02/24 00:51 10/02/24 00:51 10/02/24 00:51 10/02/24 00:51
Last Documented Vital Signs
Temp Pulse Resp BP Pulse Ox
98.1 F 75 18 115/71 96
10/02/24 02:10 10/02/24 02:10 10/02/24 00:51 10/02/24 04:42 10/02/24 02:10
MDM/Problems Addressed
Differential Diagnosis Includes:
allergic reaction, angioedema, hereditary angioedema
MDM/Problems Addressed:
Pt treated with benadryl, steroid, epi. Symptoms have not progressed and somewhat better. Observed for extended period of time. D/c Pt has an security and compliance analyst who has been treating chronic urticaria with various medications. He will need to follow up
with them closely
*Pulse Oximetry
SaO2: 95
Oxygen Mode of Delivery: Room air
Patient hypoxic: no
*Critical Care Note
Total Time (30-74mins, 75-104mins- exclusive of procedures): Not Applicable
ED Attending Note
-
Portions of this chart may have been created with voice recognition software.� Occasional wrong word or��sound alike� substitutions may have occurred due to the inherent limitations of voice recognition software.
Discharge Plan
Departure
Patient Disposition: Home (Routine Discharge)
Date of Disposition: 10/02/24
Time of Disposition: 04:25
Patient with high blood pressure during this ER visit?: No
Condition: Fair
Discharge Problem:
Allergic reaction, Angioedema
Instructions: Allergic reaction - ED discharge instructions
Prescriptions:
No Action
No Current Medications
0
Referrals:
Michael Rosenthal PA-C [Family Provider, Family Practice]
Interventions
Interventions:
*Risk Screen - Suicide Last Done: 10/02/24 00:51
*General Assessment Last Done: 10/02/24 02:09
*Neglect/Abuse Screening Last Done: 10/02/24 00:51
*ED- Fall Risk Assessment Last Done: 10/02/24 02:09
*ED COVID-19 Vaccine History Last Done: 10/02/24 02:09
*Nursing Disposition Last Done: 10/02/24 04:42
ED- Cardiac Assessment Last Done: 10/02/24 02:09
ED- Pulmonary Assessment Last Done: 10/02/24 02:09
ED-Skin Assessment Last Done: 10/02/24 02:09
Discharge Date and Time
Discharge Date/Time: 10/02/24 04:51
Print Language: FAROESE
[2024-10-02 02:09] VITALS: BMI 34.6
[2024-10-02 02:10] VITALS: BP 114/78
[2024-10-02] MEDS: DECADRON 10 MG IV (02:28)
[2024-10-02] MEDS: BENADRYL 50 MG IV (02:29)
[2024-10-02] MEDS: ADRENALIN 0.3 MG IM (02:30)
[2024-10-02 04:33] VITALS: BP 114/71
[2024-10-02 04:42] VITALS: BP 115/71
== END 2024-10-02 04:51 | disposition home or self-care (01) ==
LOC: EMR 00:42
PROVIDERS: EMERGENCY PHYSICIAN Emergency Medicine; FAMILY PHYSICIAN Physician Assistant Medical
DX: T78.3XXA Angioneurotic edema, initial encounter (principal); T78.40XA Allergy, unspecified, initial encounter; Y92.9 Unspecified place or not applicable; Z90.49 Acquired absence of other specified parts of digestive tract
CPT/HCPCS: 99282; 96374; 96375; 96372